=== PATIENT | female | born 1985 | race Caucasian/White ===

== ENCOUNTER 2020-11-29 11:10 | Outpatient (CLI) | payer OTHER, SELFPAY ==
[2020-11-29 11:24] VITALS: BP 118/73; PULSE 94; TEMP 36.8
[2020-11-29] MEDS: Lactated Ringers 1,000 ML 125 ML IV (11:30)
[2020-11-29] MEDS: Terbutaline 1 MG/ML Vial 0.25 MG SC (11:35)
[2020-11-29 11:46] VITALS: BMI 39.1
--- NOTE | 2020-12-01 01:08 | OB.TRI.PN_ITS ---
Progress Notes Date of Service: 11/29/20 Progress Note: Patient presents for triage evaluation secondary to suspected breech presentation and patient was counseled regarding an external cephalic version. Upon initial evaluation infant was noted to be vertex she denied any complaints of bleeding loss of fluid decreased movement and no regular contractions. FHT: 130 Moderate variability reactive no decelerations category I tracing [place]: no reg Contractions Assessment and plan: Vertex presentation reactive NST, reassuring maternal and status patient discharged to home to follow-up with Nisha Shkula. See problem list details for additional plan information. - Problem List (1) Cephalic presentation of fetus Status: Acute (2) Advanced maternal age (AMA) in Status: Acute Multi Select Codes - Urinary/Genital Urinary/Genital CPT Codes: 14512-05 non-stress test Interp
== END 2020-11-29 12:00 | disposition home or self-care (01) ==
LOC: WPOUT 11:19 → WP 11:20
PROVIDERS: Referring Provider Obstetrics & Gynecology; Visit Provider Obstetrics & Gynecology
DX: O32.1XX0 Maternal care for breech presentation, not applicable or unspecified (principal); Z3A.00 Weeks of gestation of pregnancy not specified
CPT/HCPCS: 36415; 59025; 59050; 96365; 96372; 99218; J7120; G0378

== ENCOUNTER → 2021-06-09 | Outpatient (CLI) | payer OTHER, SELFPAY ==
[2021-06-09 22:05] LABS: Absolute Lymphocyte Count 3.01 X10^3/uL (0.83-4.51); Basophil# 0.03 X10^3/uL; Basophil% 0.3 % (0-1); Eosinophil# 0.07 X10^3/uL; Eosinophils% 0.6 % (0-5); Lymphocyte # 3.01 X10^3/ul (0.83-4.51); Lymphocyte % 26.8 % (19-41); Mean Corp Hgb Conc 32.6 g/dL (32-36); Mean Platelet Vol. 10.7 fl (6.2-12.0); Monocyte# 0.94 X10^3/uL; Monocyte% 8.4 % (0-10); NRBC Flagged by Analyzer 0 % (0-5); Neutrophil # 7.01 X10^3/uL (2.7-7.7); Neutrophil % 62.5 % (47-70); Platelet Count 424 K/mm3 (150-450); RBC Distribution Width CV 12.9 % (11.6-14.6); RBC Distribution Width SD 42.1 fl (35.1-43.9); Red Blood Count 4.83 M/mm3 (4.2-5.4); White Blood Count 11.2 K/mm3 (4.4-11.0)
[2021-06-09 22:07] LABS: ALB/GLOB Ratio 0.8 RATIO (0.9-2.4); AST(SGOT) 52 U/L (15-37); Alanine Aminotransfer ALT/SGPT 131 U/L (13-56); Albumin, Serum 3.1 g/dL (3.2-5.0); Alkaline Phosphatase 59 U/L (45-117); Anion Gap 7 (5-15); BUN 17 mg/dL (7-18); BUN/Creat Ratio 25.5 RATIO (10-20); CRP, High Sensitivity Cardiac 1.62 mg/L; Calcium,Total 8.9 mg/dL (8.5-10.1); Chloride 103 mmol/L (98-107); Creatinine, Serum 0.67 mg/dL (0.55-1.02); EST Glomerular Filtration Rate 106 mL/min (>60); Est Glom Filt Rate - Afr Amer 128 mL/min (>60); Globulin 3.8 g/dL (2.2-4.2); Glucose 91 mg/dL (74-106); Potassium 3.9 mmol/L (3.5-5.1); Protein, Total 6.9 g/dL (6.4-8.2); Sodium Level 139 mmol/L (136-145); Thyroid Stim Hormone (TSH) 0.49 uIU/mL (0.358-3.74)
== END | disposition home or self-care (01) ==
PROVIDERS: Referring Provider Nurse Practitioner; Visit Provider Nurse Practitioner
DX: R42 Dizziness and giddiness (principal); B94.8 Sequelae of other specified infectious and parasitic diseases
CPT/HCPCS: 80053; 84443; 85025; 86141

== ENCOUNTER → 2022-03-17 | Outpatient (CLI) | payer BC, SELFPAY ==
[2022-03-17 21:37] LABS: Absolute Lymphocyte Count 2.85 X10^3/uL (0.83-4.51); Absolute Neutrophil Count 4.5 X10^3/uL (2.0-7.7); Basophil# 0.04 X10^3/uL; Basophil% 0.5 % (0-1); Eosinophils% 5.9 % (0-5); Hemoglobin 13.6 g/dL (12.0-15.0); Lymphocyte # 2.85 X10^3/ul (0.83-4.51); Lymphocyte % 33.6 % (19-41); Mean Corp Hgb Conc 32.4 g/dL (32-36); Mean Corpuscular Hgb 28.6 pg (27.0-32.0); Mean Corpuscular Volume 88.4 fL (81-99); Mean Platelet Vol. 11.5 fl (6.2-12.0); Monocyte# 0.54 X10^3/uL; Monocyte% 6.4 % (0-10); NRBC Flagged by Analyzer 0 % (0-5); Neutrophil # 4.52 X10^3/uL (2.7-7.7); Neutrophil % 53.4 % (47-70); Platelet Count 255 K/mm3 (150-450); RBC Distribution Width SD 45.8 fl (35.1-43.9); Red Blood Count 4.75 M/mm3 (4.2-5.4); White Blood Count 8.5 K/mm3 (4.4-11.0)
[2022-03-17 22:05] LABS: ALB/GLOB Ratio 1.1 RATIO (0.9-2.4); AST(SGOT) 19 U/L (15-37); Alanine Aminotransfer ALT/SGPT 39 U/L (13-56); Albumin, Serum 3.7 g/dL (3.2-5.0); Alkaline Phosphatase 58 U/L (45-117); Anion Gap 7 (5-15); BUN 12 mg/dL (7-18); BUN/Creat Ratio 15.4 RATIO (10-20); CRP < 2.90 mg/L (0.0-3.0); Calcium,Total 9.2 mg/dL (8.5-10.1); Chloride 107 mmol/L (98-107); Creatinine, Serum 0.78 mg/dL (0.55-1.02); EST Glomerular Filtration Rate 89 mL/min (>60); Est Glom Filt Rate - Afr Amer 107 mL/min (>60); Globulin 3.4 g/dL (2.2-4.2); Glucose 101 mg/dL (74-106); Potassium 3.9 mmol/L (3.5-5.1); Protein, Total 7.1 g/dL (6.4-8.2); Sodium Level 139 mmol/L (136-145)
[2022-03-19 18:45] LABS: EBV Acute VCA IgM < 36.0 U/mL (0.0-35.9); EBV Nuclear Antigen IgG < 18.0 U/mL (0.0-17.9); EBV-VCA IgG < 18.0 U/mL (0.0-17.9)
[2022-03-20 20:38] LABS: ANTINUCLEAR ANTIBODIES DIRECT Negative (Negative); Vitamin D 1,25-Dihydroxy 80.4 pg/mL (24.8-81.5)
== END | disposition home or self-care (01) ==
PROVIDERS: Visit Provider Nurse Practitioner
DX: M25.521 Pain in right elbow (principal); E55.9 Vitamin D deficiency, unspecified; R53.83 Other fatigue
CPT/HCPCS: 80053; 82652; 85025; 86038; 86140; 86225; 86235; 86664; 86665

== ENCOUNTER 2024-11-14 22:42 | Observation (INO) | payer OTHER, SELFPAY ==
[2024-11-14 22:33] VITALS: PULSE 101; RESP 15; O2SAT 98; BMI 37.6
[2024-11-14 23:08] VITALS: BP 106/87; PULSE 101; RESP 15; TEMP 37.2; O2SAT 98
[2024-11-15] VITALS (18 sets, daily range): BP systolic 108–151; BP diastolic 57–108; PULSE 71–100; RESP 15–22; TEMP 36.2–37.1; O2SAT 93–100
[2024-11-15] MEDS: Piperacil/Tazobactam 3.375 GM in 0.9% Normal Saline (50mL MB+) 50 ML IV ×3 (00:12→13:47)
[2024-11-15 00:19] LABS: Internal QC Validated? YES +Cl - CLEAR BKGD; Pregnancy, Serum, hCG Quali. NEGATIVE Negative
[2024-11-15] MEDS: Acetaminophen 500 MG Tablet 1000 MG PO ×2 (05:59→13:46)
[2024-11-15 06:04] LABS: Absolute Lymphocyte Count 1.77 X10^3/uL (0.83-4.51); Absolute Neutrophil Count 8.9 X10^3/uL (2.0-7.7); Basophil# 0.04 X10^3/uL; Basophil% 0.3 % (0-1); Eosinophil# 0.09 X10^3/uL; Eosinophils% 0.8 % (0-5); Hematocrit 38.6 % (37-47); Lymphocyte # 1.77 X10^3/ul (0.83-4.51); Lymphocyte % 14.9 % (19-41); Mean Corp Hgb Conc 33.7 g/dL (32-36); Mean Corpuscular Hgb 29.5 pg (27.0-32.0); Mean Corpuscular Volume 87.5 fL (81-99); Mean Platelet Vol. 11.6 fl (6.2-12.0); Monocyte# 0.98 X10^3/uL; Monocyte% 8.3 % (0-10); NRBC Flagged by Analyzer 0 % (0-5); Neutrophil # 8.92 X10^3/uL (2.7-7.7); Neutrophil % 75.4 % (47-70); Platelet Count 206 K/mm3 (150-450); RBC Distribution Width CV 14.1 % (11.6-14.6); RBC Distribution Width SD 45.4 fl (35.1-43.9); Red Blood Count 4.41 M/mm3 (4.2-5.4); White Blood Count 11.8 K/mm3 (4.4-11.0)
[2024-11-15 06:17] LABS: Anion Gap 8 (5-15); BUN 7 mg/dL (7-18); BUN/Creat Ratio 11.2 RATIO (10-20); Calcium,Total 8.7 mg/dL (8.5-10.1); Chloride 109 mmol/L (98-107); Creatinine, Serum 0.63 mg/dL (0.55-1.02); EST Glomerular Filtration Rate 112 mL/min (>60); Est Glom Filt Rate - Afr Amer 136 mL/min (>60); Estimated Creatinine Clearance 137.44 ml/min; Glucose 110 mg/dL (74-106); Potassium 3.4 mmol/L (3.5-5.1); Sodium Level 139 mmol/L (136-145)
--- NOTE | 2024-11-15 09:41 | PRE.ANES_ITS ---
ASA Classification* ASA Classification ASA Classification: 2 Assessment & Plan Anesthesia* Anesthesia Assessment Anesthesia Assessment: Discussed sedation and/or anesthesia options, risks, benefits, and alternatives with patient/parents/legal guardian/POA. Questions invited. The patient/parents/legal guardian/POA seems to understand and agrees to proceed with anesthesia plan. Reviewed the physical assessment, medical history, allergy history and patient home medications list prior to surgery/procedure/anesthetic and documented any changes. Performed airway and anesthesia risk assessments. Anesthesia Type Anesthesia Type: General History Source History Obtained from:: Patient and Chart Anesthesia Focused Assessment* Temperature: 97.9 F Pulse Rate: 73 Blood Pressure: 112/68 Respiratory Rate: 16 Pulse Ox: 98 Oxygen Delivery Method: Room Air Airway Assessment Mouth opens: >3 cm Mallampati Score: III Teeth Condition: Caps/Crowns (Right lower molar has a crown. It is tight.) and Loose (Tooth #15 is slightly loose. Patient states it needs to be pulled.) Neck Range of motion (ROM): Limited ROM (Slight decrease in extension) Focused Labs Anesthesia Preop lab: CBC WBC 11.8 K/mm3 (4.4-11.0) H 11/15/24 05:28 5 RBC 4.41 M/mm3 (4.2-5.4) 11/15/24 05:28 11/15/24 Hgb 13.0 g/dL (12.0-15.0) 11/15/24 05:28 11/15/24 Hct 38.6 % (37-47) 11/15/24 05:28 11/15/24 Plt Count 206 K/mm3 (150-450) 11/15/24 05:28 11/15/24 CHEMISTRY Potassium 3.4 mmol/L (3.5-5.1) L 11/15/24 05:28 11/15/24 Sodium 139 mmol/L (136-145) 11/15/24 05:28 11/15/24 BUN 7 mg/dL (7-18) 11/15/24 05:28 11/15/24 Creatinine 0.63 mg/dL (0.55-1.02) 11/15/24 05:28 11/15/24 Glucose 110 mg/dL (74-106) H 11/15/24 05:28 11/15/24 TSH 0.49 uIU/mL (0.358-3.74) 06/09/21 15:45 COAG HCG, Quant 38852 mIU/mL (<9 non-preg) H 05/13/12 10:58 12/09 Pre-Assessment Diagnosis/Proposed Procedure Planned Operative Procedure(s): Laparoscopic appendectomy. Anesthesia History Anesthesia History - senior manufacturing supervisor: Anesthesia History - senior manufacturing supervisor Hx Hospitalization Any Problems With Anesthesia No 11/14/24 23:19 Cholinesterase deficiency No 11/14/24 23:19 You/Your Family Experience No 11/14/24 23:19 fever (hyperthermia) with Relationship Recent Exposure to Contagious No 11/14/24 23:19 Disease Does patient have nerve No 11/14/24 23:19 stimulator Patient instructed to have No 11/14/24 23:19 device shut off --Does patient have Pacemaker or ICD? When Was Last Pacemaker Check QUESTION #4 FULL TEXT: You/Your Family Experience fever (hyperthermia) with Anesthesia Last Oral Intake Last Oral intake: Last Oral Intake NPO since Meds taken in AM with sips of water? Meds patient instructed to take am of surgery Any additional information?: Yes NPO since: 00:00 Meds taken in AM with sips of water?: Yes Meds patient instructed to take am of surgery: Patient had Tylenol at 3:30 AM. PONV PONV - senior manufacturing supervisor: PONV - senior manufacturing supervisor Female HX of Motion Sickness HX of N/V After Surgery Non-Smoker Duration of Surgery greater than 60 minutes Number of Risk Factors PONV Score Height & Weight Height & Weight: Anesthesia: Height & Weight Height 5 ft 4 in 11/14/24 22:33 Weight: 99.5 kg 11/14/24 22:33 Body Mass Index (BMI) 37.6 11/14/24 22:33 Respiratory Assessment Respiratory Assessment - senior manufacturing supervisor: Respiratory Tract Infection Hx - senior manufacturing supervisor Hx Respiratory Tract Infection No 11/14/24 23:19 STOP Sleep Apnea STOP Sleep Apnea - senior manufacturing supervisor: STOP Sleep Apnea - senior manufacturing supervisor Hx Hypertension No 11/14/24 22:33 Hx Sleep Apnea No 11/14/24 22:33 CPAP BIPAP Do you snore loudly (louder No 11/14/24 22:33 than talking or can be heard Do you often feel tired/ No 11/14/24 22:33 fatigued/ sleepy during daytime? Has anyone observed you stop No 11/14/24 22:33 breathing during sleep? STOP Results Negative 11/14/24 22:33 QUESTION #5 FULL TEXT : Do you snore loudly (louder than talking or can be heard through closed doors)? Tobacco Use History Tobacco Use History - senior manufacturing supervisor: Tobacco Use History - senior manufacturing supervisor Tobacco Use Smoking Status Never smoker 11/14/24 22:33 Hx Tobacco Use No 11/14/24 22:33 Years Smoking Packs Smoked per Day Smoking Cessation Date was within the last 15 years Hx Smoking Cessation Date Hx Smoking Cessation Counseling Hematologic Medial History Hematologic Hx - senior manufacturing supervisor: Hematologic Medical Hx - travel registered nurse pacu Hx of Blood Transfusion No 11/14/24 22:33 Hx of Transfusion in last 3 No 11/14/24 22:33 Months Date of Last Transfusion (if within last 3 months) Ever experience any problems No 11/14/24 22:33 with transfusion(s)? Specify any problems Hx of Preganancy in last 3 No 11/14/24 22:33 Months Nurse Filling Out Transfusion [email or web address] 11/14/24 22:33 & Questions: Date: 11/14/24 11/14/24 22:33 Time: 22:44 11/14/24 22:33 Patient unable to answer at this time (ie. confused, unrespo /Reproduction History /Reproductive History - senior manufacturing supervisor: /Reproductive Hx- senior manufacturing supervisor Hx Now No 11/14/24 23:19 Gestational Age (in weeks): EDC: Hx Hx Para Hx Section SAB No 11/14/24 22:33 Active Medications Active Medications: Current Medications Generic Name Dose Route Start Last Admin Trade Name Freq PRN Reason Stop Dose Admin Acetaminophen 1,000 mg 11/15/24 06:00 11/15/24 05:59 Acetaminophen 500 Mg Tablet PO 1,000 mg Q8 IFRAH Administration Piperacillin Sod/Tazobactam 50 mls @ 12.5 mls/hr 11/14/24 22:55 11/15/24 05:59 Sod 3.375 gm/ Sodium Chloride IV 12.5 mls/hr Q8 IFRAH Administration Morphine Sulfate 2 - 4 mg 11/14/24 22:42 Morphine 2 Mg/Ml Syringe IV Q3H PRN PRN Pain Score 6-10 Morphine Sulfate 2 - 4 mg 11/14/24 22:54 Morphine 4 Mg/Ml Syringe IV Q3H PRN PRN Pain Score 6-10 Ondansetron HCl 4 mg 11/14/24 22:42 Ondansetron 4 Mg/2 Ml Vial IV Q8H PRN PRN NAUSEA/VOMITING Oxycodone HCl 5 mg 11/14/24 22:42 Oxycodone 5 Mg Tablet PO Q4H PRN PRN Pain Score 4-10 PFSH Medical History TMJ (dislocation of temporomandibular joint) Radiculopathy of cervical spine Complete miscarriage Home Medications ?Medication ?Instructions ?Recorded ?Last Taken ?Type cholecalciferol (vitamin D3) 125 125 mcg PO DAILY 05/28 01/15 Unknown History mcg (5,000 unit) capsule multivitamin 1 tab PO DAILY 06/10/21 Unkn own History amoxicillin 875 mg-potassium 1 tab PO BID #20 tabs 05/19 Unknown Rx clavulanate 125 mg tablet fluconazole 150 mg tablet 150 mg PO Q3D 2 doses #2 tab s 05/04/23 Unknown Rx meclizine 12.5 mg tablet 12.5 mg PO TID PRN dizziness #30 05/04/23 Unknown Rx tabs Allergy/AdvReac Type Severity Reaction Status Date / Time Latex, Natural Rubber Allergy Rash Verified 06/11/21 09:11 Family History Other CVA (cerebral vascular accident) Diabetes Hypertension [id number] syndrome Thyroid disorder Surgical History (Updated 11/15/24 @ 09:[address] Tony Abreu MD) S/P dilatation and curettage Social History Smoking Status: Never smoker Review of Systems (Anesthesia) ROS Narrative System reviewed and no additional complaints, except as documented.
--- NOTE | 2024-11-15 10:00 | APP_PTH ---
PATIENT: ELENO CARD LOC: MS3 U#:[id number] AGE/SX: 38/F ROOM: AL314 RE11/14/[address]: Dr. Cristofer Quinonez MD : 1985 BED: 1 DIS: 11/15/2024 SPEC #: [id number] RECD: 11/15/24 13:35 STATUS: RUI RODRIGUEZKacey #: [id number] DAVID: 11/15/24 10:[address]: Cristofer Quinonez DEPT: SURGICAL PATHOLOGY RECD BY: Marisa To ENTERED: 11/15/24 14:18 SP TYPE: APPENDIX OT DR: No Primary Care Phys Tissues: Appendix, NOS Procedures: Surgery Specimen Level III HEADER OPERATION: Laparoscopic appendectomy PRE-OP DIAGNOSIS: Acute appendicitis TISSUE SUBMITTED: Appendix MICROSCOPIC DIAGNOSIS Appendix, appendectomy: Acute appendicitis and periappendicitis. SJ 11/16/2024 MICROSCOPIC DESCRIPTION Slides are reviewed. GROSS DESCRIPTION Received in fixative is one container labeled with the patient's name and designated appendix. The specimen consists of an appendix measuring 5.5 cm in length and up to 1.2 cm in diameter. The attached periappendiceal adipose tissue measures up to 2 cm in width. The serosal surface is covered with vivas purulent exudate. No obvious perforation is identified. The lumen is filled with purulent material. The mucosa is congested and hemorrhagic. No fecalith is identified. Human Resources Executive sections are submitted in one cassette. / BART: 11/15/2024 TC:2 CPT: 41463
--- NOTE | 2024-11-15 10:00 | HP.PCM.SX_ITS ---
HPI - General General Date of Admission: 11/14/24 Date of Service: 11/15/24 Chief Complaint: Acute appendicitis HPI Narrative ELENO CARD, is a 38 F who was admitted overnight for acute appendicitis. She was a transfer from [facility]. She presented to their emergency department with several week history of intermittent abdominal pain and discomfort. This seemed to intensify over the past week. She was evaluated by the ER staff and was found to have a white count about 17,000. CT scan was performed and showed appendicitis. She wished to be transferred to [facility] for surgical intervention. I excepted her transfer after speaking with the ER physician at [place]. This morning patient states she still having right lower quadrant pain but is under better control. She did state that she has been having some nausea and vomiting recently pain really became more intense in the right lower quadrant just yesterday which prompted her visit to the ER [facility] Medical History (Updated 11/15/24 @ 10:[address] Cristofer Quinonez MD) Acute appendicitis TMJ (dislocation of temporomandibular joint) Radiculopathy of cervical spine Complete miscarriage Home Medications ?Medication ?Instructions ?Recorded ?Last Taken ?Type cholecalciferol (vitamin D3) 125 125 mcg PO DAILY 05/28 01/15 Unknown History mcg (5,000 unit) capsule multivitamin 1 tab PO DAILY 06/10/21 Unkn own History amoxicillin 875 mg-potassium 1 tab PO BID #20 tabs 05/19 Unknown Rx clavulanate 125 mg tablet fluconazole 150 mg tablet 150 mg PO Q3D 2 doses #2 tab s 05/04/23 Unknown Rx meclizine 12.5 mg tablet 12.5 mg PO TID PRN dizziness #30 05/04/23 Unknown Rx tabs Allergy/AdvReac Type Severity Reaction Status Date / Time Latex, Natural Rubber Allergy Rash Verified 06/11/21 09:11 Family History Other CVA (cerebral vascular accident) Diabetes Hypertension [id number] syndrome Thyroid disorder Surgical History S/P dilatation and curettage Social History Smoking Status: Never smoker ROS Eyes Eyes: Reports systems reviewed and no addt'l complaints, except as documented ENT HEENT: Reports systems reviewed and no addt'l complaints, except as documented Cardiovascular Cardiovascular: Reports systems reviewed and no addt'l complaints, except as documented Respiratory/Chest Respiratory/Chest: Reports systems reviewed and no addt'l complaints, except as documented Gastrointestinal Gastrointestinal: Reports systems reviewed and no addt'l complaints, except as documented Genitourinary Genitourinary: Reports systems reviewed and no addt'l complaints, except as documented Musculoskeletal Musculoskeletal: Reports systems reviewed and no addt'l complaints, except as documented Integumentary Integumentary: Reports systems reviewed and no addt'l complaints, except as documented Neurologic Neurologic: Reports systems reviewed and no addt'l complaints, except as documented Vital Signs Vital Signs Vital Signs: 11/14/24 22:33 11/14/24 23:08 11/15/24 03:37 Temperature 98.9 F 98.8 F Temperature Source Temporal Oral Pulse Rate 101 H 101 H 94 Pulse Strength Respiratory Rate 15 15 15 Respiratory Effort Normal Non-Labored Respiratory Depth Normal Respiratory Pattern Normal Blood Pressure 106/87 H 108/57 L Blood Pressure Mean 93 74 Blood Pressure Source Monitor Monitor Blood Pressure Position Semi-Fowlers Semi-Fowlers Blood Pressure Location Right Arm Right Arm Pulse Ox 98 98 98 Oxygen Delivery Method Room Air Room Air Room Air 11/15/24 03:40 11/15/24 08:00 11/15/24 08:00 Temperature 97.9 F Temperature Source Oral Pulse Rate 73 Pulse Strength Respiratory Rate 15 16 Respiratory Effort Normal Non-Labored Normal Non-Labored Respiratory Depth Normal Normal Respiratory Pattern Normal Normal Blood Pressure 112/68 Blood Pressure Mean 82 Blood Pressure Source Monitor Blood Pressure Position Semi-Fowlers Blood Pressure Location Right Arm Pulse Ox 98 98 Oxygen Delivery Method Room Air Room Air Room Air 11/15/24 08:36 11/15/24 09:54 Temperature 97.9 F Temperature Source Pulse Rate 73 Pulse Strength Normal (2+) Respiratory Rate 16 Respiratory Effort Respiratory Depth Respiratory Pattern Blood Pressure 112/68 Blood Pressure Mean Blood Pressure Source Blood Pressure Position Blood Pressure Location Pulse Ox 98 Oxygen Delivery Method Room Air Weight Weight: 219 lb 5.759 oz Body Mass Index (BMI) 37.6 Physical Exam Narrative She is alert and oriented x 3. She is in no acute distress. Head is normocephalic and atraumatic. Pupils are equal round and reactive to light. Abdomen is soft and nondistended. Mild tenderness to palpation of the right lower quadrant. No rebound or guarding. Resp normal respiratory effort Results Lab / Micro Data Attestation: I reviewed the patient's lab results. 11/15/24 05:28 11/15/24 05:28 Labs: Laboratory Results - last 24 hr 11/14/24 23:40: Serum , Qual NEGATIVE 11/15/24 05:28: WBC 11.8 H, RBC 4.41, Hgb 13.0, Hct 38.6, MCV 87.5, MCH 29.5, MCHC 33.7, RDW Std Deviation 45.4 H, RDW Coeff of Zelda 14.1, Plt Count 206, MPV 11.6, Immature Gran % (Auto) 0.300, Neut % (Auto) 75.4 H, Lymph % (Auto) 14.9 L, [place] % (Auto) 8.3, Eos % (Auto) 0.8, Baso % (Auto) 0.3, Absolute Neuts (auto) 8.9 H, Absolute Lymphs (auto) 1.77, Nucleated RBC % 0, Sodium 139, Potassium 3.4 L, Chloride 109 H, Carbon Dioxide 22.0, Anion Gap 8, BUN 7, Creatinine 0.63, Estim Creat Clear Calc 137.44, Est GFR (MDRD) Af Amer 136, Est GFR (MDRD) Non-Af 112, BUN/Creatinine Ratio 11.2, Glucose 110 H, Calcium 8.7 Assessment & Plan Assessment/Plan (1) Acute appendicitis: PLAN: Plan The patient is a 38-year-old female with acute appendicitis. I have offered her a laparoscopic appendectomy. We discussed the details of the planned surgery as well as the risks benefits and alternatives. She wishes to proceed. Surgery will begin momentarily Charges/Coding Visit Charges Inpatient E&M: 25315 Init Hosp L3
[2024-11-15] MEDS: Bupiv/Epi 0.25% 30 ML Vial (10:52)
--- NOTE | 2024-11-15 11:23 | PCM.POST.ANE ---
Anesthesia: Postop Eval I Current Vital Signs Temperature: 97.2 F Pulse Rate: 100 Blood Pressure: 123/108 (Patient shivering, RN to give IV demerol) Respiratory Rate: 22 Pulse Ox: 100 Assessment Airway patent: Yes Spontaneous unlabored respirations: No nausea: No Vomiting: No Anesthesia Complication: No Fluid Hydration Crystalloid volume administer (ml): 1,200 Total IV fluid infused: 1,200 Progress Note Anesthesia document: Postop Eval 1 completed: Yes
--- NOTE | 2024-11-15 11:27 | PCM.OPRPT ---
Problems Associated Problem List Diagnoses (1) Acute appendicitis: Procedures Digestive 40xxx-49xxx: 23430 Laparoscopy appendectomy Operative Report (Standard) Operative Information Date of Procedure: 11/15/24 Pre-Operative Diagnosis: Acute appendicitis Post-Operative Diagnosis: Acute appendicitis Surgery/Procedure Performed: Laparoscopic appendectomy electronic operator: Yes Drain Cleaner Plumber: Ni Vincent Tasks completed by family and divorce legal assistant: Closing and Retracting Additional household personal assistant?: No Type of Anesthesia: General and Local RN Documented Start/Stop Times: Operation Date: 11/15/24 10:00 Case Time Into Pre-Op 11/15/24 08:59 Anesthesia Start 11/15/24 10:08 Into Room 11/15/24 10:08 Procedure Start 11/15/24 10:30 Procedure End 11/15/24 11:16 Anesthesia End 11/15/24 11:20 Out of Room 11/15/24 11:20 Into Recovery 11/15/24 11:25 Procedure Start Time: 10:30 Procedure Stop Time: 11:16 Select all DRAINS/GRAFTS/IMPLANTS that apply: None Estimated Blood Loss: 15 mL Specimen collected: Yes Description of specimen(s) removed: Appendix Description of surgery: The patient is a 38-year-old female who was transferred to [facility] last night for appendicitis. She states that she has been having abdominal pain off and on for the last couple of weeks. She presented to the emergency department at [facility] last night. CT scan indicated appendicitis. She was transferred to [facility] for definitive surgical management. I offered her a laparoscopic appendectomy as treatment. We discussed the details of the planned procedure including the risks benefits and alternatives. She wished to proceed. Patient was brought to the operating room following informed consent. Antibiotics were already being given on the floor. She was placed supine on the operative table with arms outstretched on arm boards. A general endotracheal anesthesia was induced. Once adequately sedated the abdomen is then prepped and draped in the usual sterile manner. Her left arm was comfortably tucked at her side. A 5 mm incision was made just below the umbilicus through which a 5 mm trocar was placed optically. A 5 mm 0 degree scope was inserted. There were no signs of bowel or vascular injury next a 5 mm trocar was placed in the left lower quadrant and a 12 mm trocar was placed in the left upper quadrant. The patient was then rolled to the left with some mild head down as well. The cecum was identified along with the terminal ileum. The thickened appendix was lateral to the colon. The tip was identified and was quite thickened. This seems to be chronically adherent to the cecum. A harmonic scalpel was then opened and was used to begin to dissect the appendix free from the colon starting in a distal to proximal manner. Once down at the base of the appendix as a transition to the cecum, a small window was created in the mesoappendix. A vascular staple load was fired across the mesoappendix. Next a regular tissue stapler was fired across the base of the appendix flush with the cecum. The specimen was then free. The appendix was then placed into a bag and brought out through the 12 mm trocar site. The trocar was then replaced. The right lower quadrant was then irrigated with 1 L of saline. This was clear. Hemostasis was excellent at all of the staple lines. Next the fascia at the 12 mm trocar site was closed using 0 PDS with the aid of the suture passer/fascial closure device. The remaining trocars were opened up and insufflation was allowed to escape. Local anesthetic was injected into each of the incisions. Incisions were then closed with 4-0 Vicryl. Skin glue was applied as dressing. She was awakened from anesthesia and taken to recovery in good condition. A SALESPERSON [employer] was utilized as a investment sales assistant. Her role included holding the camera and assistance with incision closure. Surgical Findings: Acute on chronic appendicitis Complications Complications: No Admit VTE Documentation VTE Present on Admission: No VTE Mechan Device Prophylaxis: SCD's VTE Pharm Prophylaxis ordered?: No Reason prophylaxis not ordered: Treatment Not Indicated
--- NOTE | 2024-11-15 11:45 | POSTOPAN2_ITS ---
Anesthesia Postop Eval I Sum Postop Eval Completion status Anesthesia document: Postop Eval 1 completed: Yes Anesthesia Postop Eval I Summary Anesthesia Postop Eval I Summary: Anesthesia Postop Eval I: Assessment Summary Airway patent Yes 11/15/24 11:23 STEM ROLLER OPERATOR.[email or web address] Spontaneous unlabored No 11/15/24 11:23 STEM ROLLER OPERATOR.CSIR respirations Mental status nausea No 11/15/24 11:23 STEM ROLLER OPERATOR.CSIR Vomiting No 11/15/24 11:23 STEM ROLLER OPERATOR.CSIR Anesthesia Postop Eval I: Fluid Summary Crystalloid volume administer 1,200 11/15/24 11:23 STEM ROLLER OPERATOR.CSIR (ml) Colloids volume administered ( ml) Blood Product volume administered (ml) Total IV fluid infused 1,200 11/15/24 11:23 STEM ROLLER OPERATOR.CSIR Anesthesia Postop Eval I: Summary Notes Anesthesia Complication No 11/15/24 11:23 STEM ROLLER OPERATOR.CSIR Anesthesia Complication Comment: Post-operative progress note Anesthesia: Postop Eval II Evaluation Mental status: Awake and Calm Pain Level: 2 nausea: No Vomiting: No
--- NOTE | 2024-11-15 11:45 | PCM.POSTANE2 ---
Anesthesia Postop Eval I Sum Postop Eval Completion status Anesthesia document: Postop Eval 1 completed: Yes Anesthesia Postop Eval I Summary Anesthesia Postop Eval I Summary: Anesthesia Postop Eval I: Assessment Summary Airway patent Yes 11/15/24 11:23 YARN [email or web address] Spontaneous unlabored No 11/15/24 11:23 YARN [email or web address].CSIR respirations Mental status nausea No 11/15/24 11:23 YARN DYER.CSIR Vomiting No 11/15/24 11:23 YARN [email or web address] Anesthesia Postop Eval I: Fluid Summary Crystalloid volume administer 1,200 11/15/24 11:23 YARN [email or web address].CSIR (ml) Colloids volume administered ( ml) Blood Product volume administered (ml) Total IV fluid infused 1,200 11/15/24 11:23 YARN [email or web address].[email or web address] Anesthesia Postop Eval I: Summary Notes Anesthesia Complication No 11/15/24 11:23 YARN [email or web address].CSIR Anesthesia Complication Comment: Post-operative progress note Anesthesia: Postop Eval II Evaluation Mental status: Awake and Calm Pain Level: 2 nausea: No Vomiting: No
[2024-11-15] MEDS: oxyCODONE 5 MG Tablet PO (13:46)
--- NOTE | 2024-11-15 15:22 | PCM.DC.SUM ---
Providers Date of Admission: 11/14/24 Date of Discharge: 11/15/24 Primary Care Physician: No Primary Care Phys None Reason For Visit: APPENDICITIS Diagnosis Discharge Diagnosis (1) Acute appendicitis: Status: Acute Code(s): K35.80 - Unspecified acute appendicitis Plan The patient is a 38-year-old female with acute appendicitis. I have offered her a laparoscopic appendectomy. We discussed the details of the planned surgery as well as the risks benefits and alternatives. She wishes to proceed. Surgery will begin momentarily Medications at Discharge Home Medications cholecalciferol (vitamin D3) 125 mcg (5,000 unit) capsule 125 mcg PO DAILY 06/10/21 multivitamin 1 tab PO DAILY 06/10/21 amoxicillin 875 mg-potassium clavulanate 125 mg tablet 1 tab PO BID #20 tabs 05/04/23 fluconazole 150 mg tablet 150 mg PO Q3D 2 doses #2 tabs 05/04/23 meclizine 12.5 mg tablet 12.5 mg PO TID PRN dizziness #30 tabs 05/04/23 oxycodone-acetaminophen 5 mg-325 mg tablet (Percocet) 1 tab PO Q8H PRN pain 3 days #10 tabs 11/15/24 Hospital Course Operations appendectomy Procedures None Summary of Care Provided Minutes Spent on Discharge: 15 Hospital Course: The patient is a 38-year-old female who is having some abdominal discomfort for the past several weeks. This pain intensified in the last week. She presented to an outside emergency room where a CT scan was performed and indicated the possibility of appendicitis. She had an elevated white count as well. She was transferred to [facility] for definitive surgical evaluation and management. I offered her a laparoscopic appendectomy as treatment. We discussed the details of the planned procedure and she wished to proceed. Surgery was performed without incident. Her appendix appeared to have both acute as well as chronic inflammation consistent with appendicitis. She tolerated the procedure well. She was feeling much better after the appendix was removed. Her previous right lower quadrant pain has now resolved. Pain is well-controlled. Anticipate discharge to home later today. Physical Exam Const alert, oriented x3 and no apparent distress Weight / BMI Weight Weight: 219 lb 5.759 oz Body Mass Index (BMI) 37.6 ABG / Lab / Microbiology Data 11/15/24 05:28 11/15/24 05:28 Laboratory: Laboratory Results - last 24 hr 11/14/24 23:40: Serum , Qual NEGATIVE 11/15/24 05:28: WBC 11.8 H, RBC 4.41, Hgb 13.0, Hct 38.6, MCV 87.5, MCH 29.5, MCHC 33.7, RDW Std Deviation 45.4 H, RDW Coeff of Zelda 14.1, Plt Count 206, MPV 11.6, Immature Gran % (Auto) 0.300, Neut % (Auto) 75.4 H, Lymph % (Auto) 14.9 L, Waldo % (Auto) 8.3, Eos % (Auto) 0.8, Baso % (Auto) 0.3, Absolute Neuts (auto) 8.9 H, Absolute Lymphs (auto) 1.77, Nucleated RBC % 0, Sodium 139, Potassium 3.4 L, Chloride 109 H, Carbon Dioxide 22.0, Anion Gap 8, BUN 7, Creatinine 0.63, Estim Creat Clear Calc 137.44, Est GFR (MDRD) Af Amer 136, Est GFR (MDRD) Non-Af 112, BUN/Creatinine Ratio 11.2, Glucose 110 H, Calcium 8.7 D/C Instructions Discharge Diet: Light diet - advance as tolerated Discharge Activity: Return to Normal Activity and May Shower May shower in (days): 1 Ice area for (Minutes): 30 Lifting Restrictions: Keep lifting under 20 pounds for about 3 to 4 weeks Call your doctor if your incision/area has: Continuous Slow Oozing, Sudden Increased Bleeding, Increased Pain/ Swelling, Increased Redness, Foul Smelling Discharge and Swelling at the incision site Call your doctor if you observe: Fever of 101 or Higher Cleanse incision/area with: Soap & Water DC O2, CPAP, BIPAP Needs Home O2 Discharge instructions: No DC home with Oxygen: No Please Follow Up With: Cristofer Quinonez MD When: 2 weeks --please call office to schedule appointment Meaningful Use Info Meaningful Use Meaningful Use Diagnoses (Choose all that apply): None applicable Ischemic Stroke Statin Dosing Therapy Reference: STATIN DOSE THERAPY REFERENCE: * Patients > 75 years receive moderate or high dose statin therapy. * Patients 75 years or YOUNGER should receive HIGH intensity statin dose unless contraindicated. You will be required to document reason for non-treatment if statin daily dose does not meet guidelines. HIGH DOSE STATIN THERAPY DAILY Atorvastatin > than or = to 40 mg Rosuvastatin > than or = to 20 mg Amlodipine + Atorvastatin > than or = to 2.5/40 mg Ezetimibe + Simvastatin 10/80 mg Simvastatin 80mg Discharge Plan Admission Admit Date/Time: 11/14/24 22:42 Primary Reason for Your Visit: Acute appendicitis Attending Provider: Cristofer Quinonez Primary Care Provider: Care Physician,No Primary Discharge Orders/Prescriptions Prescriptions: New oxycodone-acetaminophen [Percocet] 5-325 mg tablet 1 tab PO Q8H PRN (Reason: pain) 3 Days Qty: 10 0RF Continued cholecalciferol (vitamin D3) 125 mcg (5,000 unit) capsule 125 mcg PO DAILY multivitamin Tablet 1 tab PO DAILY amoxicillin-pot clavulanate 875-125 mg tablet 1 tab PO BID Qty: 20 0RF meclizine 12.5 mg tablet 12.5 mg PO TID PRN (Reason: dizziness) Qty: 30 1RF fluconazole 150 mg tablet 150 mg PO Q3D Qty: 2 2RF Referrals / Follow Up: Care Physician,No Primary [Primary Care Provider] - Disposition Disposition (needs filled in before D/C Order can be placed): Home, Self Care
--- NOTE | 2024-11-15 15:38 | CASEMGMT ---
RN CM into pt room, pt states she does have PCP. Updated in [place] to Swapna Phipps. Pt denies any homegoing needs.
== END 2024-11-15 19:02 | disposition home or self-care (01) ==
PROVIDERS: Anesthesiology; Admitting Provider Surgery; PCP Nurse Practitioner; Visit Provider Surgery
PROC: 0DTJ4ZZ Resection of Appendix, Percutaneous Endoscopic Approach (ICD-10-PCS; CPT 44970; principal; 2024-11-15 09:40)
DX: K35.80 Unspecified acute appendicitis (principal)
CPT/HCPCS: 44970; 00840; 36415; 80048; 84703; 85025; 88304; 93005; 96365; 96366; 99221; G0378; J2405

== ENCOUNTER → 2025-04-09 | Outpatient (CLI) | payer OTHER, SELFPAY ==
[2025-04-09 22:23] LABS: Hematocrit 40.8 % (37-47); Hemoglobin 13.3 g/dL (12.0-15.0); Immature Granulocytes Count 0.020 X10^3/uL (0.0-0.0); Mean Corp Hgb Conc 32.6 g/dL (32-36); Mean Corpuscular Volume 89.5 fL (81-99); Mean Platelet Vol. 11.9 fl (6.2-12.0); NRBC Flagged by Analyzer 0 % (0-5); Platelet Count 230 K/mm3 (150-450); RBC Distribution Width CV 14.5 % (11.6-14.6); RBC Distribution Width SD 47.8 fl (35.1-43.9); Red Blood Count 4.56 M/mm3 (4.2-5.4); White Blood Count 7.8 K/mm3 (4.4-11.0)
[2025-04-09 22:32] LABS: CORTISOL PM 4.20 ug/dL (2.68-10.50); Ferritin 14 ng/mL (22-378)
[2025-04-09 23:05] LABS: PTHIN 57 pg/mL (11-61)
[2025-04-10 00:56] LABS: Iron 96 ug/dL (50-170); Iron Binding Capacity,Total 355 ug/dL (250-450); Iron Binding Capacity,Unsat 259 ug/dL (228-428)
[2025-04-11 14:08] LABS: Anti-Chromatin <0.2 AI (0.0-0.9); Anti-Jo <0.2 AI (0.0-0.9); Anti-dsDNA Ab 1 IU/mL (0-9); SJOGREN'S Anti-SS-A test < 0.2 AI (0.0-0.9); SJOGREN'S Anti-SS-B test < 0.2 AI (0.0-0.9)
[2025-04-11 16:09] LABS: EBV Acute VCA IgM < 36.0 U/mL (0.0-35.9); EBV-VCA IgG < 18.0 U/mL (0.0-17.9)
[2025-04-12 13:08] LABS: PROLACTIN 8.9 ng/mL (4.8-33.4)
== END | disposition home or self-care (01) ==
PROVIDERS: PCP Nurse Practitioner; Referring Provider Nurse Practitioner; Visit Provider Nurse Practitioner
DX: R42 Dizziness and giddiness (principal); R53.83 Other fatigue; R00.2 Palpitations; R51.9 Headache, unspecified; R06.02 Shortness of breath
CPT/HCPCS: 82533; 82728; 83540; 83550; 83970; 84146; 85025; 86225; 86235; 86664; 86665